=== PATIENT | male | born 1970 ===

== ENCOUNTER 2017-07-02 12:00 | Inpatient (IN) | payer OTHER ==
[~2017-07-02] VITALS: Ht 182.9 cm; Wt 131.5 kg
[2017-07-02] MEDS ORDERED: METFORMIN HCL500 MG PO (12:28)
[2017-07-02] MEDS ORDERED: TORADOL60 MG IM (12:28)
[2017-07-02] MEDS ORDERED: COZAAR50 MG PO (12:28)
[2017-07-02] MEDS ORDERED: NORFLEX PO (12:29)
[2017-07-10] MEDS ORDERED: PERCOCET 5-3251 EACH PO (11:04)
[2017-07-10] MEDS ORDERED: DOCUSATE SODIU100 MG PO (11:04)
[2017-07-10] MEDS ORDERED: CLONAZEPAM1 MG PO (11:04)
== END 2017-07-10 16:27 | disposition home or self-care (01) | DRG 472 ==
LOC: PED 07-09 05:07 → O/R 07-09 05:07 → PED 07-09 15:40
PROVIDERS: Orthopaedic Surgery Orthopaedic Surgery of the Spine
PROC: 0RG20A0 Fusion of 2 or more Cervical Vertebral Joints with Interbody Fusion Device, Anterior Approach, Anterior Column, Open Approach (ICD-10-PCS; 2017-07-09)
PROC: 0RT30ZZ Resection of Cervical Vertebral Disc, Open Approach (ICD-10-PCS; principal; 2017-07-09 10:00)
DX: M47.12 Other spondylosis with myelopathy, cervical region (principal); M50.023 Cervical disc disorder at C6-C7 level with myelopathy; I10 Essential (primary) hypertension; E11.9 Type 2 diabetes mellitus without complications

== ENCOUNTER → 2019-01-13 06:00 | Outpatient (CLI) | payer OTHER ==
[~2019-01-13] VITALS: Ht 182.9 cm; Wt 136.1 kg
[~2019-01-13 06:00] MED LIST: CELEXA20 MG PO; CLONAZEPAM1 MG PO; COZAAR50 MG PO; DOCUSATE SODIU100 MG PO; GABAPENTIN100 MG PO; KETO10TA2 PO; METFORMIN HCL500 MG PO; NORFLEX PO; NORVASC2.5 M1 PO; PERCOCET 5-3251 EACH PO; PROTONIX20 MG PO; RANITIDINE HCL300 MG PO; RESTORIL30 M1 PO; TORADOL60 MG IM
== END | disposition home or self-care (01) ==
LOC: SURH → EKG 06:00 → SURH 01-19 14:06 → EDSTATUS 01-19 18:45
DX: Z01.810 Encounter for preprocedural cardiovascular examination (principal); C19 Malignant neoplasm of rectosigmoid junction; R59.0 Localized enlarged lymph nodes; K62.5 Hemorrhage of anus and rectum; E66.09 Other obesity due to excess calories

== ENCOUNTER 2019-01-18 05:25 | Day surgery (SDC) | payer OTHER | END 2019-01-18 09:20 | disposition home or self-care (01) | LOC: AMB-ENDOS 05:25 | DX: C20 Malignant neoplasm of rectum (principal); C79.51 Secondary malignant neoplasm of bone ==

== ENCOUNTER 2019-01-18 10:00 | Outpatient (CLI) | payer OTHER | END 2019-01-18 10:05 | disposition home or self-care (01) | LOC: LAB 10:00 | DX: N20.0 Calculus of kidney (principal) ==

== ENCOUNTER 2019-01-18 10:29 | Outpatient (CLI) | payer OTHER | END 2019-01-18 11:25 | disposition home or self-care (01) | LOC: MRI 10:29 | DX: C20 Malignant neoplasm of rectum (principal) | CPT/HCPCS: 72197; A9579; 72196 ==